=== PATIENT | female | born 1935 | race Caucasian/White ===

== ENCOUNTER 2023-06-06 10:32 | Emergency (ER) | payer MEDICARE, SELFPAY ==
[2023-06-06 10:37] VITALS: BP 185/74; PULSE 70; RESP 18; TEMP 36.6; O2SAT 97
[2023-06-06 11:32] LABS: Absolute Lymphocyte Count 2.32 X10^3/uL (0.83-4.51); Absolute Neutrophil Count 5.2 X10^3/uL (2.0-7.7); Basophil# 0.05 X10^3/uL; Basophil% 0.6 % (0-1); Eosinophils% 2.4 % (0-5); Lymphocyte # 2.32 X10^3/ul (0.83-4.51); Lymphocyte % 27.4 % (19-41); Mean Corp Hgb Conc 32.4 g/dL (32-36); Mean Corpuscular Hgb 29.7 pg (27.0-32.0); Mean Corpuscular Volume 91.6 fL (81-99); Monocyte# 0.62 X10^3/uL; Monocyte% 7.3 % (0-10); NRBC Flagged by Analyzer 0 % (0-5); Neutrophil # 5.23 X10^3/uL (2.7-7.7); Neutrophil % 61.7 % (47-70); Platelet Count 258 K/mm3 (150-450); RBC Distribution Width CV 15.9 % (11.6-14.6); RBC Distribution Width SD 53.3 fl (35.1-43.9); Red Blood Count 4.04 M/mm3 (4.2-5.4); White Blood Count 8.5 K/mm3 (4.4-11.0)
--- NOTE | 2023-06-06 11:35 | RAD_ITS ---
STUDY: X-RAY CHEST REASON FOR EXAM: Female, 87 years old. Chest pain . Left shoulder and left back pain. TECHNIQUE: PA and lateral views of the chest. COMPARISON: Comparison is made with prior study dated September 18, 2020. FINDINGS: EKG electrodes are seen. Hyperinflation. Focal lingular infiltrate. Follow-up recommended. There is no demonstrated pleural abnormality. Normal size heart. Normal mediastinum and anahi. Normal visualized pulmonary arteries. Normal visualized aortic arch and descending thoracic aorta. There are degenerative changes of the visualized thoracic spine. Normal visualized ribs, clavicles, and shoulders. There is no demonstrated abnormality of the visualized soft tissue structures of the upper abdomen. RAD/Chest PA and Lateral IMPRESSION: Focal lingular infiltrate. Electronically Signed: Saud Arriaga MD at 12:34 EDT ,
[2023-06-06 11:48] LABS: Anion Gap 6 (5-15); BUN 18 mg/dL (7-18); Calcium,Total 9.4 mg/dL (8.5-10.1); Chloride 108 mmol/L (98-107); Creatinine, Serum 1.06 mg/dL (0.55-1.02); EST Glomerular Filtration Rate 52 mL/min (>60); Est Glom Filt Rate - Afr Amer 63 mL/min (>60); Glucose 129 mg/dL (74-106); Potassium 4.2 mmol/L (3.5-5.1); Sodium Level 141 mmol/L (136-145); Troponin-I HS (w/2H Reflex) 25 pg/mL (3.0-54.0)
--- NOTE | 2023-06-06 11:57 | EX.ED.DYSGE1 ---
HPI <BABAR Soliman - Last Filed: 06/06/23 15:49> History of Present Illness Chief Complaint: Back Narrative Narrative: Patient presenting today due to a near syncopal episode that occurred this morning. She reports that she was on the toilet, she did not think that she was straining but was trying to have a bowel movement and began to feel diaphoretic, nauseous, had pain to her left shoulder blade, and felt like she was going to pass out. She denies having any chest pain. She reports that she has had intermittent pain to her left shoulder blade for the past few months. She denies any injury to her shoulder/scapula. She does have a history of CAD with stent placement. She is scheduled to have a stress test soon but has not had one in several years. She denies any fevers, chills, shortness of breath, abdominal pain, nausea, and vomiting. She denies any history of blood clots/recent surgery/procedures/travel/immobilization. PFS <BABAR Soliman - Last Filed: 06/06/23 15:49> [facility] Medical History (Updated 06/06/23 @ 14:13 by BABAR Soliman) Atherosclerosis of coronary artery of [place] heart without angina pectoris Chronic pain syndrome Diabetes mellitus, type II Hyperlipidemia Hypertension Non-STEMI (non-ST elevated myocardial infarction) Obesity (BMI 30.0-34.9) Home Medications isosorbide mononitrate 60 mg tablet,extended release 24 hr 60 mg PO DAILY 07/14/16 [History Last Taken 06/27/19] metformin 500 mg tablet 500 mg PO BID 09/30/18 [History Last Taken 06/27/19] levothyroxine 25 mcg tablet 25 mcg PO DAILY 06/06/23 [History Last Taken Unknown] losartan 50 mg tablet 50 mg PO DAILY 06/06/23 [History Last Taken Unknown] rosuvastatin 5 mg tablet 5 mg PO DAILY 06/06/23 [History Last Taken Unknown] Allergy/AdvReac Type Severity Reaction Status Date / Time Penicillins Allergy Hives Verified 06/06/23 10:35 droperidol [From Inapsine] AdvReac Severe Extreme Verified 06/06/23 10:35 anxiety ALISON Inhibitors AdvReac Intermediate fatigue, Verified 06/06/23 10:35 cough Family History Father CAD (coronary artery disease) Mother CAD (coronary artery disease) Surgical History H/O tubal ligation History of bladder repair surgery History of coronary artery stent placement (06/09/14) Hx of cholecystectomy Social History Smoking Status: Never smoker ROS <BABAR Soliman - Last Filed: 06/06/23 15:49> ROS ED Constitutional Constitutional ED: Denies chills or fever(s) Eyes Eyes: Denies change in vision Cardiovascular Cardiovascular: Denies chest pain or palpitations Respiratory/Chest Respiratory/Chest: Denies cough or dyspnea Gastrointestinal Gastrointestinal: Denies abdominal pain, nausea or vomiting Musculoskeletal Musculoskeletal: Reports back pain Integumentary Denies Abrasions or rash Neurologic Neurologic: Denies headache(s), paresthesias or weakness EXAM <BABAR Soliman - Last Filed: 06/06/23 15:49> Physical Exam Const Vital Signs: 06/06/23 10:37 06/06/23 10:43 06/06/23 12:33 Temperature 97.9 F Temperature Source Oral Pulse Rate 70 62 Respiratory Rate 18 14 Respiratory Effort Normal Non-Labored Respiratory Pattern Normal Blood Pressure 185/74 H 190/74 H Blood Pressure Mean 111 112 Pulse Ox 97 96 Oxygen Delivery Method Room Air Room Air 06/06/23 12:45 06/06/23 13:50 06/06/23 14:23 Temperature 98.6 F Temperature Source Pulse Rate 63 65 Respiratory Rate 16 17 Respiratory Effort Respiratory Pattern Blood Pressure 168/78 H 171/103 H 184/77 H Blood Pressure Mean 108 125 112 Pulse Ox 97 96 Oxygen Delivery Method Room Air Positive well nourished, well developed and no apparent distress General Appearance ED: well developed HEENT Reports normocephalic and head/scalp atraumatic Mouth ED: Yes moist mucous membranes normal Eyes PERRL and EOMs intact bilaterally Neck full ROM and supple Chest Wall inspection of chest normal Resp normal respiratory effort and clear to auscultation bilaterally Cardio regular rate and regular rhythm GI soft to palpation, non-tender, non-distended and no masses Back/Spine normal ROM and normal to inspection Extremity normal to inspection and full ROM Neuro oriented x3, CN's II-XII intact bilaterally, moves all extremities, no focal motor deficits and no sensory deficits noted Sensorium / Orientation: awake and alert Psych mental status grossly normal and thought process normal Skin no rashes or lesions noted and no wounds <Dr. Venkat Lewis DO - Last Filed: 06/06/23 21:37> Physical Exam Const Vital Signs: 06/06/23 10:37 06/06/23 10:43 06/06/23 12:33 Temperature 97.9 F Temperature Source Oral Pulse Rate 70 62 Respiratory Rate 18 14 Respiratory Effort Normal Non-Labored Respiratory Pattern Normal Blood Pressure 185/74 H 190/74 H Blood Pressure Mean 111 112 Pulse Ox 97 96 Oxygen Delivery Method Room Air Room Air 06/06/23 12:45 06/06/23 13:50 06/06/23 14:23 Temperature 98.6 F Temperature Source Pulse Rate 63 65 Respiratory Rate 16 17 Respiratory Effort Respiratory Pattern Blood Pressure 168/78 H 171/103 H 184/77 H Blood Pressure Mean 108 125 112 Pulse Ox 97 96 Oxygen Delivery Method Room Air [facility] <BABAR Soliman - Last Filed: 06/06/23 15:49> [facility] Narrative Medical decision making narrative: Patient presenting today due to a presyncopal episode that occurred this morning while she was sitting on the toilet. She does not think that she was straining but she was trying to have a bowel movement. Symptoms do sound vasovagal in nature. She became concerned due to her history of CAD. She has had intermittent pain to her left scapula for months. No chest pain with this event. She is feeling well now and is in no acute distress. She will be given IV fluids. Labs will be obtained to rule out leukocytosis, anemia, electrolyte abnormality, and ACS. None significant delta troponin, otherwise labs unremarkable. Chest x-ray suggests lingular infiltrate, however, patient does not have any clinical symptoms of pneumonia such as a cough, shortness of breath, fevers, there is no leukocytosis. I did speak with her revenue analyst, Dr. Clements who recommends outpatient workup. She does have a scheduled stress test in 2 weeks. She does report improvement of her symptoms. She will be discharged home in stable condition and is comfortable with plan. Return instructions discussed. Lab Data Attestation: I reviewed the patient's lab results. Lab results narrative: Creatinine 1.06, GFR 52 Labs: Laboratory Results - last 24 hr 06/06/23 06/06/23 10:50 12:50 WBC 8.5 RBC 4.04 L Hgb 12.0 Hct 37.0 MCV 91.6 MCH 29.7 MCHC 32.4 RDW Std Deviation 53.3 H RDW Coeff of Dionisio 15.9 H Plt Count 258 MPV 10.0 Immature Gran % (Auto) 0.600 Neut % (Auto) 61.7 Lymph % (Auto) 27.4 Louisa % (Auto) 7.3 Eos % (Auto) 2.4 Baso % (Auto) 0.6 Absolute Neuts (auto) 5.2 Absolute Lymphs (auto) 2.32 Nucleated RBC % 0 Sodium 141 Potassium 4.2 Chloride 108 H Carbon Dioxide 27.0 Anion Gap 6 BUN 18 Creatinine 1.06 H Est GFR (MDRD) Af Amer 63 Est GFR (MDRD) Non-Af 52 L BUN/Creatinine Ratio 17.0 Glucose 129 H Calcium 9.4 Troponin I High Sens 25 21 Radiography Diagnostic Testing: Clinical Impression(s) from Imaging Studies Chest X-Ray 06/06/23 11:35 IMPRESSION: Focal lingular infiltrate. Electronically Signed: Saud Arriaga MD at 12:34 EDT , EKG Initial EKG: Comments: 67 bpm, normal sinus rhythm, no ST elevation, reviewed and interpreted by attending ED physician <Dr. Venkat Lewis, DO - Last Filed: 06/06/23 21:37> [facility] MDM Narrative Medical decision making narrative: Patient presenting today due to a presyncopal episode that occurred this morning while she was sitting on the toilet. She does not think that she was straining but she was trying to have a bowel movement. Symptoms do sound vasovagal in nature. She became concerned due to her history of CAD. She has had intermittent pain to her left scapula for months. No chest pain with this event. She is feeling well now and is in no acute distress. She will be given IV fluids. Labs will be obtained to rule out leukocytosis, anemia, electrolyte abnormality, and ACS. None significant delta troponin, otherwise labs unremarkable. Chest x-ray suggests lingular infiltrate, however, patient does not have any clinical symptoms of pneumonia such as a cough, shortness of breath, fevers, there is no leukocytosis. I did speak with her revenue analyst, Dr. Clements who recommends outpatient workup. She does have a scheduled stress test in 2 weeks. She does report improvement of her symptoms. She will be discharged home in stable condition and is comfortable with plan. Return instructions discussed. ED attending note: I evaluated the patient in conjunction with the [facility]. I agree with his/her statements and above findings. I have personally performed a face to face assessment of the patient and have reviewed the [facility] Note. I performed a substantive portion of the visit including all aspects of the following. I personally saw the patient performed chart review, physical exam, reviewed labs, imaging (if obtained), and formulated a treatment and management plan. This note was generated with [employer] dictation software. It may contain incorrect words, spelling, and punctuation that were not noted in review of the chart prior to signing. Lab Data Labs: Laboratory Results - last 24 hr 06/06/23 06/06/23 10:50 12:50 WBC 8.5 RBC 4.04 L Hgb 12.0 Hct 37.0 MCV 91.6 MCH 29.7 MCHC 32.4 RDW Std Deviation 53.3 H RDW Coeff of Dionisio 15.9 H Plt Count 258 MPV 10.0 Immature Gran % (Auto) 0.600 Neut % (Auto) 61.7 Lymph % (Auto) 27.4 Louis[place] % (Auto) 7.3 Eos % (Auto) 2.4 Baso % (Auto) 0.6 Absolute Neuts (auto) 5.2 Absolute Lymphs (auto) 2.32 Nucleated RBC % 0 Sodium 141 Potassium 4.2 Chloride 108 H Carbon Dioxide 27.0 Anion Gap 6 BUN 18 Creatinine 1.06 H Est GFR (MDRD) Af Amer 63 Est GFR (MDRD) Non-Af 52 L BUN/Creatinine Ratio 17.0 Glucose 129 H Calcium 9.4 Troponin I High Sens 25 21 Radiography Diagnostic Testing: Clinical Impression(s) from Imaging Studies Chest X-Ray 06/06/23 11:35 IMPRESSION: Focal lingular infiltrate. Electronically Signed: Saud Arriaga MD at 12:34 EDT , Discharge Plan Triage Chief Complaint: Back Other Complaint: Syncope ED Midlevel Provider: Raine Adams ED Provider: Venkat Lewis Dx/Rx/DC Orders Clinical Impression: Pre-syncope, Pain in scapula Instructions: ED Near-Fainting- Vagal Reaction Prescriptions: No Action isosorbide mononitrate 60 MG tablet extended release 24 hr 60 mg PO DAILY metformin 500 mg tablet 500 mg PO BID losartan 50 mg tablet 50 mg PO DAILY levothyroxine 25 mcg tablet 25 mcg PO DAILY rosuvastatin 5 mg tablet 5 mg PO DAILY Primary Care Provider: Nury Miller Referrals: Nury Miller DO [Primary Care Provider] - 5-7 Days Activity Restrictions/Additional Instructions: Follow-up with your PCP and cardiology. Return for any worsening of your symptoms. Disposition Disposition: Home, Self Care Discharge Date/Time: 06/06/23 14:34
[2023-06-06] MEDS: 0.9% Normal Saline (500mL Bag) 500 ML 999 ML IV (11:58)
[2023-06-06 12:33] VITALS: BP 190/74; PULSE 62; RESP 14; O2SAT 96
[2023-06-06 12:45] VITALS: BP 168/78
[2023-06-06 13:29] LABS: Reflex Troponin-HS? (from REC) Y
[2023-06-06 13:48] LABS: Troponin-I HS 21 pg/mL (3.0-54.0)
[2023-06-06 13:50] VITALS: BP 171/103; PULSE 63; RESP 16; O2SAT 97
--- NOTE | 2023-06-06 14:03 | NURSING ---
PAGED DR CERVANTES FOR [facility] [phone]
[2023-06-06 14:23] VITALS: BP 184/77; PULSE 65; RESP 17; TEMP 37; O2SAT 96
--- OUTSIDE RECORDS SUMMARY | 2023-06-06 20:22 | XMS RPT_ITS | CCD ---
Author Name Unknown Address [address] [place] [address] Organization [facility] Care Team Providers Care Marine Habitat Resource Specialist Name Role Phone DeFinfreda Harumi Y Unavailable Unavailable Jadiel Bourneumi Y Unavailable Unavailable ISAAC Taylor, Rosalinda Rodriguez Unavailable UnavailAlvin Lewis Primary Care Provider ALVIN VALDERRAMA Attending Unavailable ALVIN VALDERRAMA Admitting Unavailable Alvin Valderrama Primary Care Provider Alvin Valderrama MD Primary Care Provider ALVIN VALDERRAMA Primary Care Unavailable ALVIN VALDERRAMA Primary Care Unavailable SOHAIL GROVER Referring Unavailable SERGE IVAN I Attending Unavailable Alvin Valderrama Primary Care Provider BIANCA MILLER Primary Care Unavailable WILFREDO GUERRA Attending Unavailable Bianca Miller DO Primary Care Provider Yash MONSIVAIS, Anita APONTE Unavailable ANITA BERRIOS II Attending Unavailabl ALVIN Guzman Primary Care Unavailable SOHAIL GROVER Referring Unavailable COOPERRIDER YODIT, ANITA Willingham Attending Unavailabl BIANCA Lyon Primary Care Unavailable LLOYD KING Referring Unavailable BIANCA MILLER Primary Care Unavailable LLOYD KING Attending Unavailable LLOYD KING Referring Unavailable COOPERRIDER II, ANITA H Referring Unavailabl ALVIN Guzman Primary Care Unavailable LLOYD KING Attending Unavailable COOPERRIDER YODIT, ANITA H Attending Unavailabl e COOPERRIDER YODIT, ANITA H Referring Unavailabl ALVIN Guzman Primary Care Unavailable Bianca Miller DO Primary Care Provider CHRISTOPHER CERVANTES Attending Unavailable BIANCA MILLER Admitting Unavailable BIANCA MILLER Primary Care Unavailable BIANCA MILLER Referring Unavailable ALEXIA LOPEZ Attending Unavailable BIANCA MILLER Primary Care Unavailable Allergies Allergy Classification Reported Allergen(s) Allergy Type Date of Onset Reaction(s) Facility (16 sources) Angiotensin Converting Enzyme (Wolfgang) Inhibitors; Translations: [WOLFGANG INHIBITORS] drug allergy 5 Unknown [facility] Work Phone: [phone] (16 sources) droperidol; Translations: [DROPERIDOL] drug allergy 5 Unknown [facility] Work Phone: [phone] (19 sources) hydroCHLOROthiazi de; Translations: [HYDROCHLOROTHIAZ DIANNE] allergy to substance 5 Unknown [facility] Work Phone: [phone] (3 sources) metroNIDAZOLE drug allergy 5 [facility] Work Phone: [phone] (3 sources) Penicillins (Antibiotic) drug allergy 5 Hives [facility] Work Phone: [phone] (13 sources) Ciprofloxacin; Translations: [CIPROFLOXACIN] Drug Allergy 8 Rash [facility] (6 sources) Droperidol / fentaNYL Drug Allergy 8 Other: See Comments [facility] (13 sources) metroNIDAZOLE; Translations: [METRONIDAZOLE] Drug Allergy 8 Intolerance, GI Intolerance [facility] (7 sources) Penicillin; Translations: [PENICILLIN] Drug Allergy 5 Unknown [facility] (4 sources) Penicillins; Translations: [PENICILLINS] Drug Allergy 6 Hives [facility] (9 sources) Penicillins Drug Allergy 6 Hives, Unknown [facility] (6 sources) Droperidol / fentaNYL; Translations: [INNOVAR] Drug Allergy 8 Unknown [facility] Repository (1 source) OTHER; Translations: [OTHER] Propensity to adverse reactions (disorder) 8 [facility] [place] Repository Medications Current Medications Medication Drug Class(es) Dates Sig (Normalized) Sig (Original) atorvastatin 10 mg oral tablet (20 sources) HMG-CoA Reductase Inhibitor Start: 02-20-2022 Atorvastatin 10 MG tablet Completed/Discontinued Medications Medication Drug Class(es) Dates Sig (Normalized) Sig (Original) acetaminophen 325 mg oral tablet (6 sources) Start: 06-18-2014 End: 09-20-2014 take 2 tablets by mouth once daily ACETAMINOPHEN 325 MG TABS Two tablets by mouth daily ACETAMINOPHEN [id number] Rosalinda Taylor RN aspirin 81 mg oral strip (6 sources) Platelet Aggregation Inhibitor, Nonsteroidal Anti-inflammatory Drug Start: 06-18-2014 End: 11-21-2015 take 1 tablet by mouth once daily ASPIRIN 81 MG TABS One tablet by mouth daily ASPIRIN [id number] Teo Lee MD Problems Active Problems Problem Classification Problem Date Documented Da te Episodic/Chronic Acute myocardial infarction (3 sources) Myocardial infarction; Translations: [ST elevation (STEMI) myocardial infarction of unspecified site] Onset: 06-18-2014 06-18-2014 Chronic Blindness and vision defects (11 sources) Amblyopia of right eye; Translations: [Unspecified amblyopia, right eye] Onset: 06-16-2020 Episodic Cardiac dysrhythmias (3 sources) Ventricular premature beats; Translations: [Ventricular premature depolarization] Onset: 07-19-2016 07-19-2016 Chronic Cataract (8 sources) Bilateral pseudophakia; Translations: [Presence of intraocular lens] Onset: 04-23-2018 Chronic Congestive heart failure; nonhypertensive (3 sources) Chronic diastolic (congestive) heart failure; Translations: [Chronic diastolic (congestive) heart failure] Onset: 10-28-2014 10-28-2014 Chronic Coronary atherosclerosis and other heart disease (17 sources) Atherosclerotic heart disease of lummi coronary artery without angina pectoris; Translations: [Coronary atherosclerosis] Onset: 06-18-2014 06-18-2014 Chronic Diabetes mellitus without complication (12 sources) Diabetes mellitus; Translations: [Diabetes mellitus type 2 without retinopathy] Onset: 06-18-2014 06-18-2014 Chronic Disorders of lipid metabolism (6 sources) Hyperlipidemia; Translations: [Mixed hyperlipidemia] Onset: 06-18-2014 06-21-2014 Chronic Diverticulosis and diverticulitis (6 sources) Diverticulitis of large intestine without perforation or abscess without bleeding; Translations: [Diverticulitis of colon (without mention of hemorrhage)] Onset: 08-25-2007 08-25-2007 Chronic Essential hypertension (3 sources) Hypertensive disorder; Translations: [Essential (primary) hypertension] Onset: 06-18-2014 06-18-2014 Chronic Malaise and fatigue (5 sources) Malaise and fatigue; Translations: [Other fatigue] Onset: 07-19-2016 07-19-2016 Episodic Other circulatory disease (2 sources) Elevated blood-pressure reading, without diagnosis of hypertension; Translations: [Elevated blood-pressure reading, without diagnosis of hypertension] Onset: 04-21-2023 Episodic Other eye disorders (6 sources) Bilateral optic atrophy of eyes; Translations: [Unspecified optic atrophy] Onset: 04-23-2018 04-23-2018 Chronic Other eye disorders (2 sources) Tear film insufficiency; Translations: [Dry eye syndrome of bilateral lacrimal glands] Episodic Other eye disorders (2 sources) Lesion of eyelid; Translations: [Unspecified disorder of eyelid] Episodic Other eye disorders (2 sources) Unspecified disorder of eyelid; Translations: [Unspecified disorder of eyelid] Onset: 03-07-2022 Episodic Other gastrointestinal disorders (6 sources) Diarrhea; Translations: [Diarrhea, unspecified] 07-05-2005 Episodic Other nutritional; endocrine; and metabolic disorders (7 sources) Body mass index (BMI) 30.0-30.9, adult; Translations: [Body mass index (BMI) 32.0-32.9, adult] Onset: 06-18-2014 05-14-2016 Chronic Other nutritional; endocrine; and metabolic disorders (1 source) Body mass index (BMI) 31.0-31.9, adult; Translations: [Body mass index (BMI) 31.0-31.9, adult] Onset: 06-18-2014 06-18-2014 Chronic Other nutritional; endocrine; and metabolic disorders (1 source) Body mass index (BMI) 32.0-32.9, adult; Translations: [Body mass index (BMI) 32.0-32.9, adult] Onset: 06-18-2014 05-23-2015 Chronic Retinal detachments; defects; vascular occlusion; and retinopathy (20 sources) Nonexudative age-related macular degeneration; Translations: [Nonexudative age-related macular degeneration, bilateral, advanced atrophic with subfoveal involvement] Onset: 04-23-2018 Chronic Unclassified (2 sources) Placement of stent in coronary artery ; Translations: [Presence of coronary angioplasty implant and graft] Onset: 06-18-2014 05-23-2015 Unclassified (2 sources) Long-term drug therapy; Translations: [Other rat exterminator (current) drug therapy] Onset: 06-18-2014 12-05-2015 Viral infection (2 sources) Viral infection, unspecified; Translations: [Viral infection, unspecified] Onset: 04-21-2023 Episodic Past or Other Problems Problem Classification Problem Date Documented Date Episodic/Chronic Biliary tract disease (12 sources) Calculus of gallbladder with cholecystitis; Translations: [Calculus of gallbladder with chronic cholecystitis without obstruction] Onset: 08-25-2007 08-25-2007 Episodic Congestive heart failure; nonhypertensive (3 sources) Diastolic dysfunction; Translations: [Other ill-defined heart diseases] Onset: 11-09-2014 11-09-2014 Episodic Coronary atherosclerosis and other heart disease (3 sources) Coronary angioplasty status; Translations: [Coronary angioplasty status] Onset: 06-18-2014 06-18-2014 Episodic Other aftercare (4 sources) Long-term (current) use of other medications; Translations: [Other mcc (current) drug therapy] Onset: 06-18-2014 06-18-2014 Episodic Other screening for suspected conditions (not mental disorders or infectious disease) (6 sources) Imaging of gastrointestinal tract abnormal; Translations: [Abnormal findings on diagnostic imaging of other parts of digestive tract] Onset: 08-25-2007 08-25-2007 Episodic Septicemia (except in labor) (6 sources) Sepsis; Translations: [Sepsis, unspecified organism] Onset: 01-28-2013 01-28-2013 Episodic Results Test Name Value Interpretation Reference Range Facil ity Vital Signs Date Time Vital Sign Value Performing Clinician Facility 06-04-2023 11:24-0400 Diastolic blood pressure 88 mm[Hg] Christopher Cervantes MD Work Phone: [facility] 06-04-2023 11:24-0400 Heart rate 69 /min Christopher Cervantes MD Work Phone: [facility] 06-04-2023 11:24-0400 SaO2% (BldA) [Mass fraction] 95 % Christopher Cervantes MD Work Phone: [facility] 06-04-2023 11:24-0400 Systolic blood pressure 178 mm[Hg] Christopher Cervantes MD Work Phone: [facility] 06-04-2023 09:50-0400 Body height 162.6 cm Christopher Cervantes MD Work Phone: [facility] 06-04-2023 09:50-0400 Body mass index (BMI) [Ratio] 30.42 kg/m2 Christopher Cervantes MD Work Phone: [facility] 06-04-2023 09:50-0400 Body weight 80.38 kg Christopher Cervantes MD Work Phone: [facility] 11-12-2016 12:41-0400 BMI (Body Mass Index) 30.89 kg/m2 [facility] Work Phone: 11-12-2016 12:41-0400 BP Diastolic 70 mm[Hg] [facility] Work Phone: 11-12-2016 12:41-0400 BP Systolic 168 mm[Hg] [facility] Work Phone: 11-12-2016 12:41-0400 Height 162.56 cm [facility] Work Phone: 11-12-2016 12:41-0400 Pulse (Heart Rate) 74 /min [facility] Work Phone: 11-12-2016 12:41-0400 Respiratory Rate 18 /min [facility] Work Phone: 11-12-2016 12:41-0400 Weight 81.65 kg [facility] Work Phone: 05-14-2016 08:38-0500 BSA (Body Surface Area) 1.86 m2 [facility] Work Phone: Encounters Encounter Date Encounter Type Care Provider Facility Start: 06-04-2023 End: 06-04-2023 ambulatory CHRISTOPHER CERVANTES [facility] Start: 06-04-2023 End: 06-04-2023 Office outpatient new 45 minutes Bianca Miller DO Work Phone: [facility] Procedures Date Procedure Procedure Detail Performing Clinician Start: 06-04-2023 Ecg routine ecg w/least 12 lds w/i&r Christopher Cervantes MD Work Phone: Start: 05-09-2023 Computerized ophthalmic imaging retina Lloyd King MD, PhD Work Phone: Start: 11-08-2022 Computerized ophthalmic imaging retina Lloyd King MD, PhD Work Phone: Start: 08-30-2022 Computerized ophthalmic imaging retina Anita Willingham Yash OD Work Phone: Start: 03-01-2022 Computerized ophthalmic imaging retina Sohail Grover MD Work Phone: Start: 08-31-2021 Computerized ophthalmic imaging retina Sohail Grover MD Work Phone: Start: 11-12-2016 End: 11-12-2016 Dietary management education, guidance, and counseling Rosalinda Taylor RN Start: 11-12-2016 End: 11-12-2016 DJN Teo Lee MD Work Phone: Start: 11-12-2016 End: 11-12-2016 Follow Up Appt 6 months Teo Lee MD Work Phone: Start: 11-12-2016 End: 11-12-2016 Follow Up BP Check Teo Lee MD Work Phone: Start: 11-05-2016 End: 11-12-2016 *Hepatic Function Panel Teo Lee MD Work Phone: Start: 11-05-2016 End: 11-12-2016 Lipid panel [AGGREGATE] Teo Lee MD Work Phone: Start: 07-19-2016 End: 08-08-2016 Stress Echocardiogram (treadmill) Teo Lee MD Work Phone: Start: 05-18-2016 End: 05-18-2016 Follow Up BP Check Teo Lee MD Work Phone: Start: 05-14-2016 End: 08-08-2016 *Hepatic Function Panel Teo Lee MD Work Phone: Start: 05-14-2016 End: 05-14-2016 MITZY Lee MD Work Phone: Start: 05-14-2016 End: 05-14-2016 Follow Up Appt 6 months Teo Lee MD Work Phone: Start: 05-14-2016 End: 08-08-2016 Lipid panel [AGGREGATE] Teo Lee MD Work Phone: Start: 01-02-2016 End: 08-08-2016 *Hepatic Function Panel Teo Lee MD Work Phone: Start: 01-02-2016 End: 08-08-2016 Lipid panel [AGGREGATE] Teo Lee MD Work Phone: Start: 12-19-2015 End: 12-19-2015 Follow Up BP Check Teo Lee MD Work Phone: Start: 11-21-2015 End: 11-21-2015 MITZY Lee MD Work Phone: Start: 11-21-2015 End: 11-21-2015 Follow Up Appt 6 months Teo Lee MD Work Phone: Start: 11-21-2015 End: 11-21-2015 Follow Up BP Check Teo Lee MD Work Phone: Start: 05-23-2015 End: 11-21-2015 *Hepatic Function Panel Teo Lee MD Work Phone: Start: 05-23-2015 End: 05-23-2015 MITZY Lee MD Work Phone: Start: 05-23-2015 End: 05-23-2015 Follow Up Appt 6 months Teo Lee MD Work Phone: Start: 05-23-2015 End: 11-21-2015 Lipid panel [AGGREGATE] Teo Lee MD Work Phone: Start: 05-10-2015 End: 05-23-2015 *Hepatic Function Panel Teo Lee MD Work Phone: Start: 05-10-2015 End: 05-23-2015 Lipid panel [AGGREGATE] Teo Lee MD Work Phone: Start: 11-15-2014 End: 11-15-2014 MITZY Lee MD Work Phone: Start: 11-15-2014 End: 11-15-2014 Follow Up Appt 6 months Teo Lee MD Work Phone: Start: 10-28-2014 End: 11-11-2014 *BMP Teo Lee MD Work Phone: Start: 10-25-2014 End: 11-04-2014 Echocardiography Teo Lee MD Work Phone: Start: 09-20-2014 End: 09-20-2014 MITZY Lee MD Work Phone: Start: 09-20-2014 End: 09-20-2014 Follow Up Appt 2 months Teo Lee MD Work Phone: Start: 07-23-2014 End: 07-23-2014 *Hepatic Function Panel Teo Lee MD Work Phone: Start: 07-23-2014 End: 07-23-2014 Lipid panel [AGGREGATE] Teo Lee MD Work Phone: Start: 06-21-2014 End: 09-20-2014 Cardiac Rehab Teo Lee MD Work Phone: Start: 06-21-2014 End: 06-21-2014 MITZY Lee MD Work Phone: Start: 06-21-2014 End: 06-21-2014 Follow Up Appt 6 months Teo Lee MD Work Phone: Start: 06-18-2014 Placement of stent in coronary artery Status post cardiac stent placement Rosalinda Taylor RN Plan of Treatment Date Care Activity Detail Author Start: 05-23-2024 End: 10-30-2024 OCT MACULA CIRRUS OU (BOTH EYES) OCT MACULA CIRRUS OU (BOTH EYES) OPHT Imaging Routine Nonexudative age-related macular degeneration, bilateral, 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) Expected: 05/23/2024, Expires: 10/30/2024 [facility] Work Phone: Immunizations Immunization Date Immunization Notes Care Provider Fa [facility] 01-22-2022 influenza virus vaccine, unspecified formulation Lloyd King MD, PhD Work Phone: [facility] 03-07-2021 influenza virus vaccine, unspecified formulation Serge Ivan MD Work Phone: [facility] Payers Date Payer Category Payer Medicare HU[employer]NA MEDICARE HU[employer] MEDICARE PPO [id number] 2011-Present [phone] [facility] [id number] [place] [address] PPO [id number] 2011 Medicare [id number] 2011 Medicare [id number] 1933 Unknown [id number] 1933 Unknown [id number] 1933 Unknown [id number] 1933 Unknown [id number] 1933 Unknown [id number] 1933 Unknown [id number] 1933 Unknown [id number] 1933 Unknown [id number] Social History Date Type Detail Facility Start: 04-23-2018 End: 04-21-2023 Tobacco smoking status NHIS Never smoked tobacco [facility] Start: 08-31-2021 End: 05-16-2023 Alcohol intake Current non-drinker of alcohol (finding) [facility] Start: 1935 Sex Assigned At Not on file [facility] Start: 08-21-2021 End: 08-31-2021 Exposure to SARS-CoV-2 (event) Not sure [facility] Start: 04-23-2018 End: 04-21-2023 Tobacco use and exposure Smokeless tobacco non-user [facility] Start: 03-07-2022 Alcohol intake Lifetime non-d prem (finding) [facility] Start: 02-25-2022 End: 03-07-2022 Exposure to SARS-CoV-2 (event) Unable to assess [facility] Start: 09-19-2022 End: 04-21-2023 History of Social function [facility] Start: 09-19-2022 End: 04-21-2023 Tobacco use panel [facility] National Score (1-100), lower number is lower risk 72 [facility] NEGATED: Highlighted rowStart: NINF History of tobacco use Passive smoker [facility] Medical Equipment Procedure Code Equipment Code Equipment Origin al Text Equipment Identifier Dates [id number] Start: 06-07-2020 Clinical Notes 07-05-2005 to 06-04-2023 Tracy Del Real MA - 06/04/2023 10:06 AM Christopher Lorenz MD - 06/04/2023 10:06 AM EDTPatient InstructionsPatient InstructionsCoAnita cid II, FADI - 05/16/2023 3:31 PM EST Note Date & Type Note Facility 06-04-2023 History of Present illness Narrative Review of Systems Cardiovascular: Positive for dyspnea on exertion. Negative for chest pain, irregular heartbeat, leg swelling, near-syncope, palpitations and syncope. OFFICE CONSULTATION NOTE [facility] [address]) [facility] [address] [facility] [id number] Physicians: Bianca Miller DO (Family); Bianca Miller DO (Referring) Subjective: Lisa Aquino is a 87 y.o. female seen in the office today for Initial Visit (Intake) (SOBOE, fatigue, left shoulder blade paint takes a 325 mg asa and after 1/2 it goes away) . HPI patient has been experiencing left infrascapular and left shoulder pain and because her prior heart problems which involved non-STEMI AR and 2015 and stent implant she went to the emergency room and was told nothing was wrong. She has occasional chest pains and notes it when lying in the last about an hour is noted as a discomfort no relation to to activity or food ingestion current medications include Imdur which was started at the time of her heart attack she is also on atorvastatin. She is not on aspirin regularly she did take a 325 mg aspirin well for the pain which relieved it Assessment/Plan atypical chest pains rule out angina. She is questionable to have a simple treadmill and I had offered doing a walking Claudia MPI but she wishes to proceed in that manner and we will go from there ECG: Sinus Rhythm -With rate variation cv = 15. WITHIN NORMAL LIMITS Reviewed personally No problem-specific Assessment & Plan notes found for this encounter. Follow Up Ordered: No follow-ups on file. Patient's Medications New Prescriptions No medications on file Previous Medications BLOOD SUGAR DIAGNOSTIC (TRUE METRIX GLUCOSE TEST STRIP) STRIPS CYANOCOBALAMIN, VITAMIN B-12, (VITAMIN B-12 ORAL) Take by mouth . FUROSEMIDE (LASIX) 20 MG TABLET as needed . ISOSORBIDE MONONITRATE (IMDUR) 60 MG 24 HR TABLET every morning . LEVOTHYROXINE (SYNTHROID, LEVOTHROID) 25 MCG TABLET Take 1 (one) tablet (25 mcg total) by mouth once daily . LOSARTAN (COZAAR) 50 MG TABLET Take 1 (one) tablet (50 mg total) by mouth daily . METFORMIN (GLUCOPHAGE) 500 MG TABLET 2 (two) times a day . ROSUVASTATIN (CRESTOR) 5 MG TABLET Take 1 (one) tablet (5 mg total) by mouth daily . VIT C/E/ZN/COPPR/LUTEIN/ZEAXAN (PRESERVISION AREDS-2 ORAL) Take by mouth . Modified Medications No medications on file Discontinued Medications ATORVASTATIN (LIPITOR) 20 MG TABLET every night at bedtime . LOSARTAN (COZAAR) 25 MG TABLET daily . Histories: Past Medical History: Diagnosis Date Coronary artery disease Diabetes mellitus (HCC) Type 2 Hypertension Hypothyroidism NSTEMI (non-ST elevated myocardial infarction) ([facility]) 2014 Past Surgical History: Procedure Laterality Date CARDIAC CATHETERIZATION [address] Riddle CORONARY ANGIOPLASTY WITH STENT PLACEMENT 2014 Stent x1 to LAD History reviewed. No pertinent family history. Social History Tobacco Use Smoking status: Never Passive exposure: Never Smokeless tobacco: Never Substance Use Topics Drug use: Never Allergies Allergen Reactions Wolfgang Inhibitors Unknown Droperidol Unknown Hydrochlorothiazide Unknown Penicillins Hives and Unknown Innov[employer] Unknown anxiety Metronidazole GI Intolerance left a copper taste in mouth Ciprofloxacin Rash broke out into rash at end of treatment Review of Systems Constitutional: Negative. HENT: Negative. Eyes: Negative. Cardiovascular: Negative for palpitations. Respiratory: Negative. Endocrine: Negative. Skin: Negative. Musculoskeletal: Negative. Gastrointestinal: Negative. Genitourinary: Negative. Neurological: Negative. Psychiatric/Behavioral: Negative. All other systems reviewed and are negative. Overview of Problems Addressed: No problems updated. Objective: Vitals: BP (!) 173/95 (BP Location: Left arm, Patient Position: Sitting, BP Cuff Size: Adult) Pulse 69 Ht 5' 4 Wt 80.4 kg (177 lb 3.2 oz) SpO2 96% BMI 30.42 kg/m Physical Exam Constitutional: Appearance: Normal appearance. HENT: Head: Normocephalic and atraumatic. Nose: Nose normal. Eyes: Extraocular Movements: Extraocular movements intact. Pupils: Pupils are equal, round, and reactive to light. Cardiovascular: Rate and Rhythm: Normal rate and regular rhythm. Pulses: Normal pulses. Heart sounds: Normal heart sounds. Pulmonary: Effort: Pulmonary effort is normal. Breath sounds: Normal breath sounds. Abdominal: General: Abdomen is flat. Bowel sounds are normal. Palpations: Abdomen is soft. Musculoskeletal: General: Normal range of motion. Cervical back: Normal range of motion and neck supple. Skin: General: Skin is warm and dry. Neurological: General: No focal deficit present. Mental Status: She is alert and oriented to person, place, and time. Mental status is at baseline. 1. 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, unspecified whether lummi or transplanted heart (HCC) Christopher Cervantes MD 06/04/2023 documented in this encounter [facility] 06-04-2023 Instructions Deonna Stearns RN - 06/04/2023 9:50 AM EDT How to contact your Care Team: Provider: Christopher Cervantes MD Nurse: Deonna Stearns OUTSIDE SALES REPRESENTATIVE In case of an emergency please call 911. REFILLS: When in need for refills please call your care team or the office at [phone]. CARDIAC STRESS TEST You are scheduled to have a standard exercise stress test on at . This is a monitored test on a treadmill at various work levels of increasing difficulty. During and after the test, your heart rate, blood pressure, electrocardiogram and clinical symptoms are carefully observed. This data provides information on the status of your heart, blood pressure and physical fitness. The total time required to complete the test is 45 minutes to one hour. NOTHING TO EAT OR DRINK 2 HOURS PRIOR TO APPOINTMENT TIME. Specifically, DO NOT drink coffee or carbonated beverages that contain caffeine including drinks labeled decaffeinated. Drinks containing caffeine can artificially raise your heart rate. Tobacco should be avoided 4 hours prior to procedure. Wear loose fitting clothes and comfortable shoes for exercise. Gym shorts would be appropriate. Medications: You may take all of your medications prior to your procedure. Please bring a list of your current medications with you. If you have any further questions, please contact your care team or call our office at [phone]. Please include medication name, pharmacy name, and specify 30-day or 90-day supply. Please check with your pharmacy within 24 hours of request for your refill. You must follow up as directed to continue current refills. Thank you! documented in this encounter [facility] 05-16-2023 Note HNO ID: [id number] Author: ANITA BERRIOS II, OD Service: ? Author Type: EDITOR NEWSPAPER Type: Progress Notes Filed: 05/16/2023 15:33 Note Text: Assessment and Plan H52.03 Hyperopia, bilateral (primary encounter diagnosis) H52.221 Regular astigmatism, right eye H53.001 Amblyopia, right eye Comment: Small shift in glasses power left eye. Scratched lenses bothering patient. Update glasses as desired. Follow-up care with Dr. King as instructed. I have confirmed and edited as necessary the relevant HPI, ophthalmic history, ROS, and the neuro exam findings as obtained by others. I have seen and examined Lisa Aquino. I have discussed the case and the management of this patient's care with the Resident/Fellow, if applicable. I also have reviewed and agree with the assessment and plan as stated above and agree with all of its relevant components. [facility] 05-16-2023 Instructions Anita Berrios II, OD - 05/16/2023 3:32 PM EST Assessment and Plan H52.03 Hyperopia, bilateral (primary encounter diagnosis) H52.221 Regular astigmatism, right eye H53.001 Amblyopia, right eye Comment: Small shift in glasses power left eye. Scratched lenses bothering patient. Update glasses as desired. Follow-up care with Dr. King as instructed. I have confirmed and edited as necessary the relevant HPI, ophthalmic history, ROS, and the neuro exam findings as obtained by others. I have seen and examined Lisa Aquino. I have discussed the case and the management of this patient's care with the Resident/Fellow, if applicable. I also have reviewed and agree with the assessment and plan as stated above and agree with all of its relevant components. documented in this encounter [facility] 05-16-2023 History of Present illness Narrative Assessment and Plan H52.03 Hyperopia, bilateral (primary encounter diagnosis) H52.221 Regular astigmatism, right eye H53.001 Amblyopia, right eye Comment: Small shift in glasses power left eye. Scratched lenses bothering patient. Update glasses as desired. Follow-up care with Dr. King as instructed. I have confirmed and edited as necessary the relevant HPI, ophthalmic history, ROS, and the neuro exam findings as obtained by others. I have seen and examined Lisa Aquino. I have discussed the case and the management of this patient's care with the Resident/Fellow, if applicable. I also have reviewed and agree with the assessment and plan as stated above and agree with all of its relevant components. documented in this encounter [facility] 05-09-2023 Note HNO ID: [id number] Author: LLOYD KING MD, PhD Service: ? Author Type: Physician Type: Progress Notes Filed: 05/09/2023 10:19 Note Text: Patient previously seen by Dr. Gary 1. 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 Pseudophakia, both eyes Stable 3. Type 2 diabetes without retinopathy both eyes -rec good blood pressure/sugar control -Continue to monitor 4. Amblyopia right eye Continue to monitor Plan: Observation after long discussion There is new heme from conversion to exudative Age related macular degeneration right eye but she has extensive atrophy - desires observation Discussed Izervay/Syfovre and don't recommend it for now Watch closely Choroidal neovascular membrane right eye, return in 10 wks I have confirmed and edited as necessary the relevant ophthalmic history, ROS, and the neuro exam findings as obtained by others. I have seen and examined this patient. I have discussed the case and the management of this patient's care with the Resident/Fellow, if applicable. I also have reviewed and agree with the assessment and plan as stated above and agree with all of its relevant components. Lloyd King MD [facility] 05-09-2023 History of Present illness Narrative Patient previously seen by Dr. Gary 1. 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 Pseudophakia, both eyes Stable 3. Type 2 diabetes without retinopathy both eyes -rec good blood pressure/sugar control -Continue to monitor 4. Amblyopia right eye Continue to monitor Plan: Observation after long discussion There is new heme from conversion to exudative Age related macular degeneration right eye but she has extensive atrophy - desires observation Discussed Izervay/Syfovre and don't recommend it for now Watch closely Choroidal neovascular membrane right eye, return in 10 wks I have confirmed and edited as necessary the relevant ophthalmic history, ROS, and the neuro exam findings as obtained by others. I have seen and examined this patient. I have discussed the case and the management of this patient's care with the Resident/Fellow, if applicable. I also have reviewed and agree with the assessment and plan as stated above and agree with all of its relevant components. Lloyd King MD documented in this encounter [facility] 11-08-2022 Note HNO ID: [id number] Author: Lloyd King MD, PhD Service: ? Author Type: Physician Type: Progress Notes Filed: 11/08/2022 9:31 AM Note Text: Patient previously seen by Dr. Gary 1. Nonexudative age-related macular degeneration, bilateral, advanced atrophic with subfoveal involvement -rec AREDs 2 vitamins/AG monitoring -No history of injections both eyes -patient was not eligible for JARAMILLO 2. Pseudophakia, both eyes Stable 3. Type 2 diabetes without retinopathy both eyes -rec good blood pressure/sugar control -Continue to monitor 4. Amblyopia right eye Continue to monitor Plan: Observation Discussed Izervay/Syfovre and don't recommend it for now Return in 6mo I have confirmed and edited as necessary the relevant ophthalmic history, ROS, and the neuro exam findings as obtained by others. I have seen and examined this patient. I have discussed the case and the management of this patient's care with the Resident/Fellow, if applicable. I also have reviewed and agree with the assessment and plan as stated above and agree with all of its relevant components. Lloyd King MD [facility] 11-08-2022 History of Present illness Narrative Patient previously seen by Dr. Gary 1. Nonexudative age-related macular degeneration, bilateral, advanced atrophic with subfoveal involvement -rec AREDs 2 vitamins/AG monitoring -No history of injections both eyes -patient was not eligible for JARAMILLO 2. Pseudophakia, both eyes Stable 3. Type 2 diabetes without retinopathy both eyes -rec good blood pressure/sugar control -Continue to monitor 4. Amblyopia right eye Continue to monitor Plan: Observation Discussed Izervay/Syfovre and don't recommend it for now Return in 6mo I have confirmed and edited as necessary the relevant ophthalmic history, ROS, and the neuro exam findings as obtained by others. I have seen and examined this patient. I have discussed the case and the management of this patient's care with the Resident/Fellow, if applicable. I also have reviewed and agree with the assessment and plan as stated above and agree with all of its relevant components. Lloyd King MD documented in this encounter [facility] 09-19-2022 Note HNO ID: [id number] Author: Anita Berrios II, OD Service: ? Author Type: EDITOR NEWSPAPER Type: Progress Notes Filed: 09/19/2022 8:34 AM Note Text: Assessment and Plan H35.3134 Nonexudative age-related macular degeneration, bilateral, advanced atrophic with subfoveal involvement (primary encounter diagnosis) Comment: Glasses power unchanged. Discussed low vision options. Patient will call if desires consult. Scheduled to see Dr. King. I have confirmed and edited as necessary the relevant ophthalmic history, ROS, and the neuro exam findings as obtained by others. I have seen and examined Lisa Aquino. I have discussed the case and the management of this patient's care with the Resident/Fellow, if applicable. I also have reviewed and agree with the assessment and plan as stated above and agree with all of its relevant components. Anita Berrios II, OD [facility] 08-30-2022 Note HNO ID: [id number] Author: Anita Berrios II, OD Service: ? Author Type: EDITOR NEWSPAPER Type: Progress Notes Filed: 08/30/2022 9:05 AM Note Text: Assessment and Plan H35.3134 Nonexudative age-related macular degeneration, bilateral, advanced atrophic with subfoveal involvement (primary encounter diagnosis) Comment: Patient notes decreased vision left eye over last month. Recommend glasses power check at [facility] and retinal consult with Dr. King in [place]. No success with low vision aids. E11.9 Type 2 diabetes mellitus without retinopathy (HCC) Comment: Examination shows no ocular diabetic complications today. Discussed need for optimal diabetes control to minimize chance of ocular complications. Advise patient to immediately report worsening in status or additional symptoms. Continue yearly dilated eye examinations. I have confirmed and edited as necessary the relevant ophthalmic history, ROS, and the neuro exam findings as obtained by others. I have seen and examined Lisa Miles. I have discussed the case and the management of this patient's care with the Resident/Fellow, if applicable. I also have reviewed and agree with the assessment and plan as stated above and agree with all of its relevant components. Anita Berrios II, OD [facility] 08-30-2022 Instructions Anita Berrios II, OD - 08/30/2022 9:03 AM EDT Assessment and Plan H35.3134 Nonexudative age-related macular degeneration, bilateral, advanced atrophic with subfoveal involvement (primary encounter diagnosis) Comment: Patient notes decreased vision left eye over last month. Recommend glasses power check at [place] office and retinal consult with Dr. King in [place]. No success with low vision aids. E11.9 Type 2 diabetes mellitus without retinopathy (HCC) Comment: Examination shows no ocular diabetic complications today. Discussed need for optimal diabetes control to minimize chance of ocular complications. Advise patient to immediately report worsening in status or additional symptoms. Continue yearly dilated eye examinations. I have confirmed and edited as necessary the relevant ophthalmic history, ROS, and the neuro exam findings as obtained by others. I have seen and examined Lisa Aquino. I have discussed the case and the management of this patient's care with the Resident/Fellow, if applicable. I also have reviewed and agree with the assessment and plan as stated above and agree with all of its relevant components. Anita Berrios II, OD documented in this encounter [facility] 08-30-2022 History of Present illness Narrative Assessment and Plan H35.3134 Nonexudative age-related macular degeneration, bilateral, advanced atrophic with subfoveal involvement (primary encounter diagnosis) Comment: Patient notes decreased vision left eye over last month. Recommend glasses power check at [place] office and retinal consult with Dr. King in [place]. No success with low vision aids. E11.9 Type 2 diabetes mellitus without retinopathy (HCC) Comment: Examination shows no ocular diabetic complications today. Discussed need for optimal diabetes control to minimize chance of ocular complications. Advise patient to immediately report worsening in status or additional symptoms. Continue yearly dilated eye examinations. I have confirmed and edited as necessary the relevant ophthalmic history, ROS, and the neuro exam findings as obtained by others. I have seen and examined Lisa Aquino. I have discussed the case and the management of this patient's care with the Resident/Fellow, if applicable. I also have reviewed and agree with the assessment and plan as stated above and agree with all of its relevant components. Anita Berrios II, FADI documented in this encounter [facility] 03-07-2022 History of Present illness Narrative REASON FOR VISIT Lisa Aquino presents to clinic today for a New Patient visit. Chief Complaint New Patient; Referral HISTORY OF PRESENT ILLNESS HPI 86 y.o. female presents today for a lid evaluation and treatment for lid lesion right eye. Referred by Dr.Rony Tennille Grover MD. Patient states she does not know how long its been there. She states when she went to get her AMD checked the doctor mentioned it and thought she should go get it checked. She states it does not bother her. She denies pain, irritation or swelling. Patient denies hx of skin cancer or previous treatment to this area. Last edited by Annamarie Murillo on 03/07/2022 1:58 PM. Allergies, medications & history reviewed & updated by Annamarie Murillo REVIEW OF SYSTEMS ROS Positive for: Eyes (lid lesion), Allergic/Imm (seasonal) Negative for: Constitutional, Gastrointestinal, Neurological (-headaches), Skin, Genitourinary, Musculoskeletal, HENT, Endocrine, Cardiovascular, Respiratory (-sob), Psychiatric, Heme/Lymph Last edited by Annamarie Murillo on 03/07/2022 1:52 PM. 10 minutes of face to face time was spent with patient performing the nuclear chemistry technician work of this visit. Referring Provider: Images from the original note were not included. REASON FOR VISIT Lisa Aquino presents to clinic today for a New Patient visit. Chief Complaint New Patient; Referral HISTORY OF PRESENT ILLNESS HPI 86 y.o. female presents today for a lid evaluation and treatment for lid lesion right eye. Referred by Dr.Rony Tennille Grover MD. Patient states she does not know how long its been there. She states when she went to get her AMD checked the doctor mentioned it and thought she should go get it checked. She states it does not bother her. She denies pain, irritation or swelling. Patient denies hx of skin cancer or previous treatment to this area. Last edited by Annamarie Murillo on 03/07/2022 1:58 PM. Allergies, medications & history reviewed & updated by Serge Ivan MD REVIEW OF SYSTEMS ROS Positive for: Cardiovascular (hypertension), Eyes (lid lesion) Negative for: Constitutional, Gastrointestinal, Neurological (-headaches), Skin, Genitourinary, Musculoskeletal, HENT, Endocrine, Respiratory (-sob), Psychiatric, Allergic/Imm, Heme/Lymph Last edited by Annamarie Murillo on 03/07/2022 1:59 PM. 10 minutes of face to face time was spent with patient performing the nuclear chemistry technician work of this visit. Base Eye Exam Visual Acuity (Snellen - Linear) Right Left Dist cc cf@face 20/60 Dist ph cc NI Pupils Pupils Shape React APD Right PERRL Round Minimal None Left PERRL Round Minimal None Visual Kerr (Counting fingers) Left Right Full Full Extraocular Movement Right Left Full Full Neuro/Psych Oriented x3: Yes Mood/Affect: Normal Slit Lamp and Fundus Exam External Exam Right Left External Rosacea Rosacea Slit Lamp Exam Right Left Lids/Lashes 1.5 x 2 mm papular lesion over pretarsal central/lateral upper lid, smooth, no nodularity/telangiectasias/ulcer ation Normal Conjunctiva/Sclera White and quiet White and quiet Cornea Clear Clear Anterior Chamber Deep and quiet Deep and quiet Iris Round and reactive Round and reactive Lens Posterior chamber intraocular lens Posterior chamber intraocular lens Vitreous Normal Normal Assessment/Plan: Lesion, right upper eyelid, consistent with benign nevus. Asymptomatic - Discussed options for management with patient, including observation, incisional biopsy, and complete excision, along with risks, benefits, and alternatives to surgery, to include bleeding, infection, pain, scarring, eyelid deformity, undesirable cosmetic result, damage to surrounding structures, loss of vision/eye, failure to correct the problem, recurrence, and need for further surgery/treatment. Patient voices understanding of risks, benefits, and alternatives and elects to observe. RTC prn for increased size or onset of symptoms. documented in this encounter [facility] 03-01-2022 History of Present illness Narrative Assessment and Plan 1. Type 2 diabetes mellitus without retinopathy (HCC) -no diabetic retinopathy both eyes 2. Nonexudative age-related macular degeneration, bilateral, advanced atrophic with subfoveal involvement -stable 3. Dry eye syndrome of both eyes -decreased vision with prolonged reading 4. Amblyopia, right eye -stable 5. Pseudophakia, both eyes Stable 6. Eyelid lesion right eye -concern for Basal cell carcinoma Plan: -Check Amsler grid daily and return to clinic as soon as possible if notice any changes (eg. wavy or broken lines) -AREDs vitamins supplementation -artificial tears twice a day both eyes -to oculoplastics for evaluation of Right upper lid lesion - [place] more accessible - to Dr. Ivan -follow-up 6 months with OCT macula and dilated fundus exam both eyes / sooner as needed I have confirmed and edited as necessary the relevant ophthalmic history, ROS, and the neuro exam findings as obtained by others. I have seen and examined Lisa Aquino. I have discussed the case and the management of this patient's care with the Resident/Fellow, if applicable. I also have reviewed and agree with the assessment and plan as stated above and agree with all of its relevant components. Sohail Grover MD documented in this encounter [facility] 08-31-2021 History of Present illness Narrative Assessment and Plan 1. Type 2 diabetes mellitus without retinopathy (HCC) -no diabetic retinopathy both eyes 2. Nonexudative age-related macular degeneration, bilateral, advanced atrophic with subfoveal involvement -stable 3. Dry eye syndrome of both eyes -decreased vision with prolonged reading 4. Amblyopia, right eye -stable 5. Pseudophakia, both eyes stable Plan: -Check Amsler grid daily and return to clinic as soon as possible if notice any changes (eg. wavy or broken lines) -AREDs vitamins supplementation -artificial tears twice a day both eyes -follow-up 6 months with OCT macula dn dilated fundus exam both eyes / sooner as needed I have confirmed and edited as necessary the relevant ophthalmic history, ROS, and the neuro exam findings as obtained by others. I have seen and examined Lisa Aquino. I have discussed the case and the management of this patient's care with the Resident/Fellow, if applicable. I also have reviewed and agree with the assessment and plan as stated above and agree with all of its relevant components. Sohail Grover MD documented in this encounter [facility] documented as of this encounter (statuses as of 08/31/2021) [facility] History of Past illness Narrative* Problem Noted Date Resolved Date Type I (juvenile type) diabe joan mellitus without mention of complication, not stated as uncontrolled 07/05/2005 04/24/2021 documented as of this encounter (statuses as of 03/01/2022) [address]13-2006 History of Past illness Narrative* Problem Noted Date Resolved Date Type I (juvenile type) diabe joan mellitus without mention of complication, not stated as uncontrolled 07/05/2005 04/24/2021 documented as of this encounter (statuses as of 08/30/2022) [address]13-2006 History of Past illness Narrative* Problem Noted Date Diagnosed Date Resolved Date Type I (juvenile type) diabe joan mellitus without mention of complication, not stated as uncontrolled 07/05/2005 04/24/2021 documented as of this encounter (statuses as of 11/08/2022) [address]13-2006 History of Past illness Narrative* Problem Noted Date Diagnosed Date Resolved Date Type I (juvenile type) diabe joan mellitus without mention of complication, not stated as uncontrolled 07/05/2005 04/24/2021 documented as of this encounter (statuses as of 05/09/2023) [address]13-2006 History of Past illness Narrative* Problem Noted Date Diagnosed Date Resolved Date Type I (juvenile type) diabe joan mellitus without mention of complication, not stated as uncontrolled 07/05/2005 04/24/2021 documented as of this encounter (statuses as of 05/16/2023) [facility] Type 2 diabetes mellitus without retinopathy (HCC)- Primary Type II or unspecified type diabetes mellitus without mention of complication, not stated as uncontrolled Nonexudative age-related macular degeneration, bilateral, advanced atrophic with subfoveal involvement Dry eye syndrome of both eyes Amblyopia, right eye Amblyopia, unspecified Pseudophakia, both eyes Lens replaced by other means [facility] Diagnosis Nonexudative age-related macular degeneration, bilateral, advanced atrophic with subfoveal involvement- Primary Eyelid lesion Unspecified disorder of eyelid Type 2 diabetes mellitus without retinopathy (HCC) Type II or unspecified type diabetes mellitus without mention of complication, not stated as uncontrolled Dry eye syndrome of both eyes Amblyopia, right eye Amblyopia, unspecified Pseudophakia, both eyes Lens replaced by other means [facility] Diagnosis Benign lesion of eyelid - Right Eye- Primary Unspecified disorder of eyelid [facility] Diagnosis Nonexudative age-related macular degeneration, bilateral, advanced atrophic with subfoveal involvement- Primary Type 2 diabetes mellitus without retinopathy (HCC) Type II or unspecified type diabetes mellitus without mention of complication, not stated as uncontrolled [facility]* Diagnosis Nonexudative age-related macular degeneration, bilateral, advanced atrophic with subfoveal involvement- Primary [facility]* Diagnosis Exudative age-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)- Primary Nonexudative age-related macular degeneration, bilateral, advanced atrophic with subfoveal involvement [facility]* Diagnosis Hyperopia, bilateral- Primary Regular astigmatism, right eye Amblyopia, right eye Amblyopia, unspecified [facility]* Diagnosis 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, unspecified whether lummi or transplanted heart (HCC)- Primary [facility] 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 In the event of a Fluress shortage, administer Ivins-Fluor 1 drop into both eyes as directed for applanation tonometry Given 08/31/2021 10:30 AM EDT 1 Drop PHENYLephrine 2.5 % 1 Drop (AK-DILATE, CHARTIY-SYNEPHRINE) 1 Drop, BOTH EYES, DIRECTED, Starting on Hetal 08/31/21 at 1030, Until Hetal 08/31/21 at 2229, Administer for dilation PROTECT FROM LIGHT Given 08/31/2021 10:30 AM EDT 1 Drop proparacaine 0.5 % 1 Drop (ALCAINE) 1 Drop, BOTH EYES, DIRECTED, Starting on Hetal 08/31/21 at 1030, Until Hetal 08/31/21 at 2229, Administer for pneumo tonometry, tonopen tonometry, or pachymetry. In the event of a proparacaine shortage, administer tetracaine 0.5% ophthalmic drops 1 drop in the left eye as directed for pneumo tonometry, tonopen tonometry, or pachymetry Given 08/31/2021 10:30 AM EDT 1 Drop tropicamide 1 % 1 Drop (MYDRIACYL) 1 Drop, BOTH EYES, DIRECTED, Starting on Hetal 08/31/21 at 1030, Until Hetal 08/31/21 at 2229, Administer for dilation Given 08/31/2021 10:30 AM EDT 1 Drop Active Administered Medications - up to 3 most recent administrations Medication Order MAR Action Action Date Dose Rate Site PHENYLephrine 2.5 % 1 Drop (AK-DILATE, CHARITY-SYNEPHRINE) 1 Drop, BOTH EYES, DIRECTED, Starting on Hetal 03/01/22 at 0900, Until Hetal 03/01/22 at 2058, Administer for dilation PROTECT FROM LIGHT Given 03/01/2022 8:48 AM EST 1 Drop proparacaine 0.5 % 1 Drop (ALCAINE) 1 Drop, BOTH EYES, DIRECTED, Starting on Hetal 03/01/22 at 0900, Until Hetal 03/01/22 at 2058, Administer for pneumo tonometry, tonopen tonometry, or pachymetry. In the event of a proparacaine shortage, administer tetracaine 0.5% ophthalmic drops 1 drop in the left eye as directed for pneumo tonometry, tonopen tonometry, or pachymetry Given 03/01/2022 8:48 AM EST 1 Drop tropicamide 1 % 1 Drop (MYDRIACYL) 1 Drop, BOTH EYES, DIRECTED, Starting on Hetal 03/01/22 at 0900, Until Hetal 03/01/22 at 2058, Administer for dilation Given 03/01/2022 8:48 AM EST 1 Drop Active Administered Medications - up to 3 most recent administrations Medication Order MAR Action Action Date Dose Rate Site PHENYLephrine 2.5 % 1 Drop (AK-DILATE, CHARITY-SYNEPHRINE) 1 Drop, BOTH EYES, DIRECTED, Starting on Hetal 08/30/22 at 0830, Until Hetal 08/30/22 at 2028, Administer for dilation PROTECT FROM LIGHT Given 08/30/2022 8:30 AM EDT 1 Drop proparacaine 0.5 % 1 Drop (ALCAINE) 1 Drop, BOTH EYES, DIRECTED, Starting on Hetal 08/30/22 at 0830, Until Hetal 08/30/22 at 2028, Administer for pneumo tonometry, tonopen tonometry, or pachymetry. In the event of a proparacaine shortage, administer tetracaine 0.5% ophthalmic drops 1 drop in the left eye as directed for pneumo tonometry, tonopen tonometry, or pachymetry Given 08/30/2022 8:30 AM EDT 1 Drop tropicamide 1 % 1 Drop (MYDRIACYL) 1 Drop, BOTH EYES, DIRECTED, Starting on Hetal 08/30/22 at 0830, Until Hetal 08/30/22 at 2028, Administer for dilation Given 08/30/2022 8:30 AM EDT 1 Drop Summary Purpose Family History No Family History Records FoundNo Family History Records FoundNo Family History Records FoundNo Family History Records FoundNo Family History Records FoundNo Family History Records Found Advance Directives No Advanced Directives Records FoundNo Advanced Directives Records FoundNo Advanced Directives Records FoundNo Advanced Directives Records FoundNo Advanced Directives Records FoundNo Advanced Directives Records Found Reason for Referral Specialty Diagnoses / Procedures Referred By Contac t Referred To Contact Cardiology Diagnoses 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, unspecified whether lummi or transplanted heart (HCC) Bianca Miller, [address] [place] [address] [facility] [address] [facility] [place] [address] Referral ID Status Reason Start Date Expiration Date V isits Requested Visits Authorized [id number] Pending Review 05/30/2023 05/29/2024 1 1 Specialty Diagnoses / Procedures Referred By Contac t Referred To Contact Cardiology Diagnoses 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, unspecified whether lummi or transplanted heart (HCC) Procedures Stress test only, exercise Christopher Cervantes MD [address] [place] [address] Referral ID Status Reason Start Date Expiration Date V isits Requested Visits Authorized [id number] Authorized 06/04/2023 06/03/2024 1 1 Additional Source Comments Source Comments (unrecognize d section and content) In the event this informatio n is protected by the Federal Confidentiality of Alcohol and Drug Abuse Patient Records regulations: The Federal rules restrict any use of the information to criminally investigate or prosecute any alcohol or drug abuse patient.[facility] the event this information is protected by the Federal Confidentiality of Alcohol and Drug Abuse Patient Records regulations: The Federal rules restrict any use of the information to criminally investigate or prosecute any alcohol or drug abuse patient.[facility] the event this information is protected by the Federal Confidentiality of Alcohol and Drug Abuse Patient Records regulations: The Federal rules restrict any use of the information to criminally investigate or prosecute any alcohol or drug abuse patient.[facility] the event this information is protected by the Federal Confidentiality of Alcohol and Drug Abuse Patient Records regulations: The Federal rules restrict any use of the information to criminally investigate or prosecute any alcohol or drug abuse patient.[facility] the event this information is protected by the Federal Confidentiality of Alcohol and Drug Abuse Patient Records regulations: The Federal rules restrict any use of the information to criminally investigate or prosecute any alcohol or drug abuse patient.[facility] the event this information is protected by the Federal Confidentiality of Alcohol and Drug Abuse Patient Records regulations: The Federal rules restrict any use of the information to criminally investigate or prosecute any alcohol or drug abuse patient.[facility] Reason for Visit (unrecogniz ed section and content) Reason Comments Diabetes Last HgbA1c was bel ow 7 taken last year Nonexudative Macular Degeneration Follow Up Bilateral, Advanced Atrophic with Sub-foveal involvement Dry Eye Syndrome Follow Up Bilateral Amblyopia Follow Up Right eye Pseudophakia Bilateral Reason Comments New Patient Referral Specialty Diagnoses / Procedures Referred By Foster malik Referred To Contact Ophthalmology Diagnoses Lesion of canthus of right eye Sohail Grover MD Cho, Serge River MD [address] [place] [address] Referral ID Status Reason Start Date Expiration Date V isits Requested Visits Authorized [id number] New Request 03/02/2022 03/27/2023 1 1 Reason Comments Diabetes Blood Sugar: 101A1C: 6.8 Blurred Vision Both Eyes Difficulty Reading Both Eyes Gotten wors e since she saw Dr. Grover 03/01/2022 Nonexudative Macular Degeneration Follow Up Reason Comments Macular Degeneration Follow Up Nonexudat nabil Both Eyes Non-insulin Dependent Diabetes Mellitus Patient states blood sugar was 205 this morning. HbA1c: 6.8 Reason Comments Non-insulin Dependent Diabetes Mellitus Blood sugar 109 Blurred Vision Right Eye continues Reason Comments Refraction Sees Dr. King for Ag e related macular degeneration and Diabetes. 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, unspecified whether lummi or transplanted heart ([facility]) Bianca Miller, [address] [place] [address] [facility] [address] [address] Referral ID Status Reason Start Date Expiration Date V isits Requested Visits Authorized [id number] Pending Review 05/30/2023 05/29/2024 1 1 Care Teams (unrecognized sec tion and content) [employer] Specialist Relationship Specialty Start Date End Date Alvin Valderrama [address] [place] [id number] PCP - General Family Medicine 06/16/20 [employer] Resource Specialist Relationship Specialty Start Date End Date Alvin Valderrama MD [address] [place] [phone] PCP - General Family Medicine 03/01/22 [employer] Resource Specialist Relationship Specialty Start Date End Date Alvin Valderrama [address] [place] [address] PCP - General Family Medicine 06/16/20 [employer] Resource Specialist Relationship Specialty Start Date End Date Alvin Valderrama [address] [place] [address] PCP - General Family Medicine 06/16/20 [employer] Resource Specialist Relationship Specialty Start Date End Date Bianca Miller DO [address] [facility] [place] [address] PCP - General Internal Medicine 05/09/23 Anita Berrios II, OD [address] [place] [id number] Referring Optometry 05/09/23 [employer] Resource Specialist Relationship Specialty Start Date End Date Bianca Miller DO [address] [facility] [place] [address] PCP - General Internal Medicine 05/09/23 Anita Berrios II OD [address] [place] [id number] Referring Optometry 05/09/23 [employer] Resource Specialist Relationship Specialty Start Date End Date Bianca Miller DO [address] [place] [address] PCP - General Internal Medicine 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 Start Date End Date Bianca Miller DO [address] [place] [address] PCP - General Internal Medicine 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 Start Date End Date Bianca Miller DO [address] [place] [address] PCP - General Internal Medicine 04/21/23 INFORMATION SOURCE (unrecogn ized section and content) DATE CREATED AUTHOR AUTHOR'S ORGANIZ ATION 10/16/2021 [facility] DATE CREATED AUTHOR AUTHOR'S ORGANIZ ATION 03/14/2022 [facility] DATE CREATED AUTHOR AUTHOR'S ORGANIZ ATION 04/21/2023 [facility] DATE CREATED AUTHOR AUTHOR'S ORGANIZ ATION 05/24/2023 [facility] DATE CREATED AUTHOR AUTHOR'S ORGANIZ ATION 06/05/2023 [facility] Active Administered Medications - up to 3 most recent administrations Administered Medications (un recognized section and content) FOR RECORDS PERTAINING TO PATIENTS WHO ARE OR HAVE BEEN ENROLLED IN A CHEMICAL DEPENDENCY/SUBSTANCEABUSE PROGRAM, SOME INFORMATION MAY BE OMITTED. This clinical summary was aggregated from multiple sources. Caution should be exercised in using it in the provision of clinical care. This summary normalizes information from multiple sources, and as a consequence, information in this document may materially change the coding, format and clinical context of patient data. In addition, data may be omitted in some cases. CLINICAL DECISIONS SHOULD BE BASED ON THE PRIMARY CLINICAL RECORDS. [employer] provides no warranty or guarantee of the accuracy or completeness of information in this document.
== END 2023-06-06 14:34 | disposition home or self-care (01) ==
PROVIDERS: Physician Assistant; Emergency Provider Emergency Medicine; PCP Internal Medicine; Visit Provider Emergency Medicine
DX: R55 Syncope and collapse (principal); E11.9 Type 2 diabetes mellitus without complications; M25.512 Pain in left shoulder; I25.10 Atherosclerotic heart disease of native coronary artery without angina pectoris; I25.2 Old myocardial infarction; E78.5 Hyperlipidemia, unspecified; Z79.84 Long term (current) use of oral hypoglycemic drugs; Z79.899 Other long term (current) drug therapy; Z95.5 Presence of coronary angioplasty implant and graft
CPT/HCPCS: 71046; 80048; 84484; 85025; 93005; 99285; J7040; A4216; J2405

== ENCOUNTER → 2023-07-24 | Outpatient (CLI) | payer MEDICARE, SELFPAY ==
[2023-07-24 11:16] LABS: AST(SGOT) 11 U/L (15-37); Alanine Aminotransfer ALT/SGPT 7 U/L (13-56); Albumin, Serum 3.6 g/dL (3.2-5.0); Alkaline Phosphatase 78 U/L (45-117); Anion Gap 3 (5-15); BUN 20 mg/dL (7-18); BUN/Creat Ratio 18.9 RATIO (10-20); Bilirubin, Direct 0.15 mg/dL (0.00-0.30); Calcium,Total 9.2 mg/dL (8.5-10.1); Chloride 110 mmol/L (98-107); Cholesterol 171 mg/dL (200); Creatinine, Serum 1.06 mg/dL (0.55-1.02); EST Glomerular Filtration Rate 52 mL/min (>60); Est Glom Filt Rate - Afr Amer 63 mL/min (>60); Globulin 3.5 g/dL (2.2-4.2); Glucose 116 mg/dL (74-106); High Density Lipoprotein 56 mg/dL; Potassium 4.3 mmol/L (3.5-5.1); Protein, Total 7.1 g/dL (6.4-8.2); Sodium Level 140 mmol/L (136-145); Triglycerides 112 mg/dL; Very Low Density Lipoprotein 22 mg/dL (5-40)
== END | disposition home or self-care (01) ==
LOC: LAB 10:28
PROVIDERS: PCP Internal Medicine; Referring Provider Internal Medicine Cardiovascular Disease; Visit Provider Internal Medicine Cardiovascular Disease
DX: E78.5 Hyperlipidemia, unspecified (principal); I25.10 Atherosclerotic heart disease of native coronary artery without angina pectoris; I10 Essential (primary) hypertension
CPT/HCPCS: 36415; 80048; 80061; 80076